=== PATIENT | female | born 1995 | race Caucasian/White ===

== ENCOUNTER 2016-11-26 15:22 | Emergency (ER) | payer OTHER ==
[~2016-11-26] VITALS: Ht 170.2 cm; Wt 109.0 kg
[2016-11-26 15:24] VITALS: BP 142/96; PULSE 92; RESP 18; TEMP 98.2; O2SAT 100
--- NOTE | 2016-11-26 15:30 | PD ---
Physical Exam Date Seen by Provider: Nov 26, 2016 Time Seen by Provider: 15:25 Narrative 21 yo female here for evaluation of chest pain. Seen at [facility] and discharged with pain meds. Going on for a month. Is mainly to the left armpit. No injuries. Sharp. Pain is 8/10. Vitals are stable in triage. Awaiting bed placement. Data Data Last Documented VS Vital Signs Date Time Temp Pulse Resp B/P Pulse Ox O2 Delivery O2 Flow Rate FiO2 11/26/16 15:24 98.2 92 18 142/96 100 MDM Medical Record Reviewed: Yes Supervised Visit with FELIPA: No Chidi Fay Nov 26, 2016 15:30
--- NOTE | 2016-11-26 16:20 | PD ---
HPI Chief Complaint: Chest Pain Time Seen by Provider: 15:44 Travel History International Travel<30 days: No Contact w/Intl Traveler<30days: No Traveled to known affect area: No History of Present Illness HPI This is a 21-year-old female who presents to the emergency department with pain in her left armpit that's been going on for months but worsening over the past several weeks, constant, worse when she lays on her left side, moves her left arm or tries to lift things, moderate severity, with no associated shortness of breath. She denies any fevers or chills. She does have a family history of breast cancer. She went to [facility] to have this pain evaluated and she says they didn't do any diagnostics and send her home with something for anxiety. She says she quit her job because she thought that was making her anxious but the symptoms have still persisted. [facility] Past Medical History Medical History: Denies Significant Hx Respiratory: Yes (ASTHMA) ?: Not LMP: 11/13/16 Past Surgical History Surgical History: No Previous Surgery Social History Alcohol Use: No Tobacco Use: No Substance Use: No Allergies-Medications (Allergen,Severity, Reaction): Coded Allergies: No Known Allergies (Unverified , 11/26/16) Reported Meds & Prescriptions Reported Meds & Active Scripts Active No Active Prescriptions or Reported Medications Review of Systems Except as stated in HPI: all other systems reviewed are Neg Physical Exam Narrative GENERAL:Well appearing, no acute distress SKIN: Focused skin assessment warm and dry. HEAD: Atraumatic. Normocephalic. EYES: Pupils equal and round. No injection or drainage. ENT: Moist mucous membranes NECK: Trachea midline. CARDIOVASCULAR: Regular rate and rhythm. No murmur appreciated. 2+ right radial pulse. RESPIRATORY: Clear to auscultation. Breath sounds equal bilaterally. GASTROINTESTINAL: Abdomen soft, non-tender, nondistended. MUSCULOSKELETAL: Tender to palpation along the proximal humerus in the armpit with some pain with range of motion of the right shoulder. NEUROLOGICAL: Awake and alert. No obvious cranial nerve deficits. Moving all extremities PSYCHIATRIC: Appropriate mood and affect; insight and judgment normal. Data Data Last Documented VS Vital Signs Date Time Temp Pulse Resp B/P Pulse Ox O2 Delivery O2 Flow Rate FiO2 11/26/16 15:24 98.2 92 18 142/96 100 Orders Chest, Single Ap (11/26/16 ) Shoulder, Complete (>2vws) (11/26/16 ) MDM Medical Decision Making Medical Screen Exam Complete: Yes Emergency Medical Condition: Yes Interpretation(s) afebrile, mild tachycardia, mild hypertension Differential Diagnosis Shoulder sprain, rotator cuff injury, malignancy Narrative Course This is a 21-year-old female who presents to the emergency department with left shoulder pain that's been going on for months. She is point tender on the proximal humerus. X-ray was obtained which was reassuring with the exception of possible widening of the AC joint. This may be the etiology of her symptoms. I think patient requires further outpatient workup. She was given referral to the [facility]. She'll be discharged on anti-inflammatories. Diagnosis Primary Impression: Acromioclavicular joint separation Qualified Code: S43.102A - Acromioclavicular joint separation, left, initial encounter Referrals: [facility] Patient Instructions: General Instructions Additional Instructions: If you develop severe chest pain, shortness of breath, sweating, lightheadedness , dizziness or difficulty breathing return to the emergency department immediately. Followup with your primary care physician in 2-3 days if your symptoms are not resolved. Med/Other Pt SpecificInfo: Prescription(s) given Scripts Naproxen 500 Mg [id number] Mg PO BID PRN (PAIN SCALE 4 TO 10) #20 TAB Prov:Noemi Devi MD 11/26/16 Disposition: 01 DISCHARGE HOME Condition: Stable Noemi Devi MD Nov 26, 2016 16:20
--- NOTE | 2016-11-26 16:25 | RADRPT ---
EXAM DATE/TIME: 11/26/2016 16:12 [facility] COMPARISON: No previous studies available for comparison. INDICATIONS : Left sided chest pain in relation to left shoulder pain. MEDICAL HISTORY : None. SURGICAL HISTORY : None. ENCOUNTER: Initial ACUITY: 2 months PAIN SCORE: 7/10 LOCATION: Left upper chest FINDINGS: A single view of the chest demonstrates the lungs to be symmetrically aerated without evidence of mas s, infiltrate or effusion. The cardiomediastinal contours are unremarkable. Osseous structures are intact. CONCLUSION: The lungs are clear. Nick Choi MD on November 26, 2016 at 16:21 Board Certified Radiologist. This report was verified electronically.
--- NOTE | 2016-11-26 16:27 | RADRPT ---
EXAM DATE/TIME: 11/26/2016 16:14 [facility] COMPARISON: No previous studies available for comparison. INDICATIONS : Left shoulder pain. MEDICAL HISTORY : None. SURGICAL HISTORY : None. ENCOUNTER: Initial ACUITY: 2 months PAIN SCORE: 7/10 LOCATION: Left shoulder. FINDINGS: Multiple view examination of the left shoulder demonstrates no evidence of fracture or dislocation. The glenohumeral and acromioclavicular joints are maintained. The separation between the acromium an d the clavicle is 8 mm; this is equivocally widened. There is no superior or inferior displacement a t the a.c. joint. There is normal range of motion between internal and external rotation. Bony mine ralization is normal. CONCLUSION: Possible widening of the a.c. joint distance suggests possible ligamentous disruption. Recommend cli nical correlation for point tenderness. Otherwise negative exam. Nick Choi MD on November 26, 2016 at 16:23 Board Certified Radiologist. This report was verified electronically.
[2016-11-26] MEDS ORDERED: NAPR500T PO (16:56)
== END 2016-11-26 17:09 | disposition home or self-care (01) ==
LOC: NEPD 15:22
DX: S43.102A Unspecified dislocation of left acromioclavicular joint, initial encounter (principal); X58.XXXA Exposure to other specified factors, initial encounter; J45.909 Unspecified asthma, uncomplicated
CPT/HCPCS: 71010; 73030; 99283

== ENCOUNTER 2017-03-11 21:49 | Emergency (ER) | payer OTHER ==
[~2017-03-11] VITALS: Ht 170.2 cm; Wt 110.0 kg
[~2017-03-11 21:49] MED LIST: NAPR500T2 PO
[2017-03-11 21:51] VITALS: BP 137/91; PULSE 75; RESP 16; TEMP 98; O2SAT 99
--- NOTE | 2017-03-11 22:38 | PD ---
HPI Chief Complaint: Abdominal Pain Time Seen by Provider: 22:12 Travel History International Travel<30 days: No Contact w/Intl Traveler<30days: No Traveled to known affect area: No History of Present Illness HPI This is a 21 year old female who presents to the emergency department with pain from her right hip back to her buttock and down the front of her right thigh since 11 AM this morning, sharp, constant, waxing and waning, 10/10 at the maximum, worse with walking. Pt. did go for a run this morning prior to the onset of the pain.Pt. tried advil which didn't help. Pt. also reports some nausea. Pt. had sex in September but missed a period and was concerned she may be . [facility] Past Medical History Narrative Medical gallstones and asthma Asthma: Yes Diminished Hearing: No Respiratory: Yes (ASTHMA) Tetanus Vaccination: < 5 Years Influenza Vaccination: No ?: Not LMP: 03/09/2017 Past Surgical History Surgical History: No Previous Surgery Social History Alcohol Use: No Tobacco Use: No Substance Use: No Allergies-Medications (Allergen,Severity, Reaction): Coded Allergies: No Known Allergies (Unverified , 11/26/16) Reported Meds & Prescriptions Reported Meds & Active Scripts Active Naproxen 500 Mg Tab 500 Mg PO BID PRN Review of Systems Except as stated in HPI: all other systems reviewed are Neg Physical Exam Narrative GENERAL:Well appearing, no acute distress SKIN: Focused skin assessment warm and dry. HEAD: Atraumatic. Normocephalic. EYES: Pupils equal and round. No injection or drainage. ENT: Moist mucous membranes NECK: Trachea midline. CARDIOVASCULAR: Regular rate and rhythm. No murmur appreciated. RESPIRATORY: Clear to auscultation. Breath sounds equal bilaterally. GASTROINTESTINAL: Abdomen soft, non-tender, nondistended. MUSCULOSKELETAL: NEUROLOGICAL: Awake and alert. No obvious cranial nerve deficits. Moving all extremities. PSYCHIATRIC: Appropriate mood and affect; insight and judgment normal. Data Data Last Documented VS Vital Signs Date Time Temp Pulse Resp B/P (MAP) Pulse Ox O2 Delivery O2 Flow Rate FiO2 03/11/17 21:51 98.0 75 16 137/91 (106) 99 Room Air Orders Orders Ed Urine Pregnancytest Poc (03/11/17 22:40) MDM Medical Decision Making Medical Screen Exam Complete: Yes Emergency Medical Condition: Yes Interpretation(s) Afebrile, no tachycardia Differential Diagnosis Appendicitis, musculoskeletal pain, lumbosacral radiculopathy, cholelithiasis, cholecystitis, ovarian cyst, ectopic Narrative Course This is a 21-year-old female who went running for the first time in a while this morning and subsequently developed pain in her right buttock that radiates down to her right thigh. She does have some right lower quadrant abdominal pain and she was concerned that she had appendicitis. She's not vomited, she has no fever and her pain on exam seems musculoskeletal. She has pain when she goes from sitting to standing and from sitting to walking. Her pain seems to be concentrated more in her buttock. I had a long conversation with the patient. In my heart of hearts I don't think she has appendicitis or any abdominal surgical pathology. She doesn't have insurance so she is hesitant to pay for further testing. She's taken 2 negative tests at home. I think this is musculoskeletal pain. If she develops vomiting or fever or worsening pain she agrees to come back to the emergency department at which time we'll do more extensive workup for her symptoms. The patient agrees with this plan. She was advised to take naproxen for pain. Diagnosis Primary Impression: Musculoskeletal pain Patient Instructions: General Instructions Additional Instructions: At this time your symptoms are not consistent with appendicitis. If you develop severe or worsening abdominal pain, fever>100.4, persistent vomiting or inability to eat or drink return to the emergency department immediately and we will do blood work and a CT scan. Med/Other Pt SpecificInfo: No Change to Meds Disposition: 01 DISCHARGE HOME Condition: Stable Noemi Devi MD Mar 11, 2017 22:38
== END 2017-03-11 23:15 | disposition home or self-care (01) ==
LOC: NEPC 21:49
DX: M79.1 Myalgia (principal); J45.909 Unspecified asthma, uncomplicated
CPT/HCPCS: 99282